=== PATIENT | female | born 1965 | race Caucasian/White ===

== ENCOUNTER 2017-07-22 10:27 | Emergency (ER) | payer OTHER ==
[2017-07-22 11:11] VITALS: BP 140/68
--- NOTE | 2017-07-22 11:33 | UC ---
Psychiatric Complaint HPI - HPI Summary HPI Summary: Intermittent memory loss. she has mentioned this to her pcp and she has had CT brain twice and MRI brain. She has had labs as well. she has been well for a few weeks and then suddenly today she had memory loss. she denies any concurrant focal neuro deficits. no slurred speech, numbness, weakness, ataxia. She is an alcoholic and drinks fairly heavily every night. she balances her own check book, manages her own meds and manages her own doctor's appointments. she takes several medications including Multivitamin and iron. - History Of Current Complaint Chief Complaint: UCAlteredMentalStatus Stated Complaint: VERY FORGETFUL Time Seen by Provider: 07/22/17 10:30 Hx Obtained From: Patient Timing: Hours Severity Initially: Moderate Severity Currently: Moderate Character: Depressed, Fearful, Anxious, Frustrated Aggravating Factor(s): Other Alleviating Factor(s): Other Associated Signs And Symptoms: Negative - she denies suicidal thoughts. Related History: Positive For: Prior Psychiatric Issues - she has had anxiety and depression for 10 years but no specialized help. - Allergies/Home Medications Allergies/Adverse Reactions: Allergies Allergy/AdvReac Type Severity Reaction Status Date / Time No Known Allergies Allergy Verified 07/22/17 10:41 Home Medications: Home Medications Citalopram TAB* [CeleXA TAB*] 20 mg PO DAILY 07/22/17 [History Confirmed ] Ferrous Sulfate [Iron (Ferrous Sulfate)] 50 mg PO DAILY 07/22/17 [History Confirmed 07/22/17] Lisinopril/HCTZ 20/12.5(NF) [Zestoretic 20/12.5(NF)] 1 tab PO DAILY 07/22/17 [ History Confirmed 07/22/17] PMH/Surg Hx/FS Hx/Imm Hx Previously Healthy: No - alcoholism. - Surgical History Surgical History: Yes Surgery Procedure, Year, and Place: C SECTION, PROBLEM WITH HER BRAIN 5 YEARS AGO,PT CAN'T RECALL DETAILS-2008 - Family History Known Family History: Positive: Other - no known alzheimers. - Social History Occupation: Employed Full-time Lives: Alone Alcohol Use: Daily Alcohol Amount: 5 BEERS A DAY. Substance Use Type: None Smoking Status (MU): Heavy Every Day Tobacco Smoker Type: Cigarettes Amount Used/How Often: 1.5 PPD Household Exposure Type: Cigarettes Review of Systems Neurological: Negative Psychological: Anxious, Depressed All Other Systems Reviewed And Are Negative: Yes Physical Exam Triage Information Reviewed: Yes Appearance: Well-Appearing, No Pain Distress, Well-Nourished Vital Signs: Initial Vital Signs Temp 98.7 F 07/22/17 10:44 Pulse 79 07/22/17 10:44 Resp 16 07/22/17 10:44 BP 140/68 07/22/17 10:44 Pulse Ox 96 07/22/17 10:44 Vital Signs Reviewed: Yes Eye Exam: Normal Eyes: Positive: Conjunctiva Clear ENT: Positive: Pharynx normal Neck exam: Normal Neck: Positive: Supple, Nontender, No Lymphadenopathy Respiratory Exam: Normal Respiratory: Positive: Chest non-tender, Lungs clear, Normal breath sounds, No respiratory distress, No accessory muscle use Cardiovascular Exam: Normal Cardiovascular: Positive: RRR, No Murmur, Pulses Normal, Brisk Capillary Refill Abdominal Exam: Normal Abdomen Description: Positive: Nontender, No Organomegaly, Soft Musculoskeletal Exam: Normal Musculoskeletal: Positive: Strength Intact, ROM Intact, No Edema Neurological: Positive: Alert, Muscle Tone Normal, Other: - neg pronator drift, heel walk and toe raise intact. CN III-XII intact.. Negative: Fatigued, Lethargic, Unresponsive Psychological: Positive: Normal Response To Family, Age Appropriate Behavior Skin Exam: Normal Skin: Negative: rashes Psych Complaint Course/Dx - Course Course Of Treatment: We had a long discussion regarding the probable causes. this is most c/w anxiety, depression and alcoholism. MMSE today performed by me is a 30/30. she has no symptoms or findings c/w cva. she has had full work up by pcp. we had a long discussion regarding getting mental health help. information provided. - Differential Dx/Diagnosis Provider Diagnoses: anxiety. depression. anxiety. Discharge - Discharge Plan Condition: Good Disposition: HOME Patient Education Materials: Mood Disorders (ED), Generalized Anxiety Disorder (ED), Anxiety (ED), Alcohol Dependence (ED), Alcohol Use Disorder (ED) Referrals: MIGUEL Durant [Primary Care Provider] - 2 Days Additional Instructions: Please follow up with [facility].
== END 2017-07-22 11:49 | disposition home or self-care (01) ==
LOC: UCCORT 10:27
DX: F41.8 Other specified anxiety disorders (principal); F17.210 Nicotine dependence, cigarettes, uncomplicated
CPT/HCPCS: 99211; G0463